=== PATIENT | female | born 1975 | race Caucasian/White ===

== ENCOUNTER 2018-06-22 19:41 | Emergency (ER) | payer BC ==
[2018-06-22 19:57] VITALS: BP 145/90
[2018-06-22] MEDS ORDERED: Lidocaine 1%* 5 ML VIAL INJ ONE (20:03)
[2018-06-22] MEDS ORDERED: Lidocaine 1%* 5 ML VIAL ONE (20:05)
--- NOTE | 2018-06-22 20:50 | UC ---
Laceration HPI - HPI Summary HPI Summary: Pt c/o laceration to left palm today ~ 1 hour ago. pt was using knife to separate frozen hamburger patties. Pt states she is UTD with tetanus. - History Of Current Complaint Chief Complaint: UCLaceration Stated Complaint: LACERATION ON LEFT HAND Time Seen by Provider: 06/22/18 19:58 Hx Obtained From: Patient Hx Last Menstrual Period: doesn't get anymore Laceration Location: Hand Mechanism Of Injury: Sharp Trauma Onset/Duration: Sudden Onset, Still Present Severity: Moderate Pain Intensity: 6 Aggravating Factors: Movement Related History: Dominant Hand Right - Allergies/Home Medications Allergies/Adverse Reactions: Allergies Allergy/AdvReac Type Severity Reaction Status Date / Time No Known Allergies Allergy Verified 06/22/18 19:57 PMH/Surg Hx/FS Hx/Imm Hx Previously Healthy: Yes - Surgical History Surgical History: Yes Surgery Procedure, Year, and Place: left hand surgery, uterine balloon therapy, gallbladder removed, hernia repair age 4, sinus surgery - Family History Known Family History: Negative: Blood Disorder - Social History Occupation: Employed Full-time Lives: With Family Alcohol Use: None Substance Use Type: None Smoking Status (MU): Never Smoked Tobacco Have You Smoked in the Last Year: No - Immunization History Most Recent Tetanus Shot: 5 yrs Review of Systems Constitutional: Negative Skin: Other - laceration Eyes: Negative ENT: Negative Respiratory: Negative Cardiovascular: Negative Gastrointestinal: Negative Genitourinary: Negative Motor: Negative Neurovascular: Negative Musculoskeletal: Negative, Myalgia - at laceration site Neurological: Negative Psychological: Negative Is Patient Immunocompromised?: No All Other Systems Reviewed And Are Negative: Yes Physical Exam Triage Information Reviewed: Yes Appearance: Well-Appearing, Pain Distress Vital Signs: Initial Vital Signs Temp 97.7 F 06/22/18 19:53 Pulse 79 06/22/18 19:53 Resp 18 06/22/18 19:53 BP 145/90 06/22/18 19:53 Pulse Ox 100 06/22/18 19:53 Vital Signs Reviewed: Yes Eye Exam: Normal ENT: Positive: Hearing grossly normal Dental Exam: Normal Neck exam: Normal Respiratory: Positive: No respiratory distress Musculoskeletal Exam: Normal Musculoskeletal: Positive: Strength Intact, ROM Intact Neurological Exam: Normal Psychological Exam: Normal Skin Exam: Other - laceration to palm of left hand at base of thumb, Laceration Repair - Laceration Repair 1 Description: Linear Laceration Size After Repair: Length (cm) - 2.5, Width (mm) - 4, Depth (mm) - 4 Modified For Repair: No Type Injection: Local Anesthesia Used: 1.0% Lido - 5 ml injected Irrigation With Pressure Irrigation Device: Yes Closure Material: Sutures - 7 sutures placed with 4-0 Closure Method: Single Layer Suture Of: Skin Suture Type: Prolene Laceration Course/Dx - Differential Dx - Laceration/Wound Differental Diagnoses: Laceration Provider Diagnoses: laceration repair to left palm of hand Discharge - Sign-Out/Discharge Documenting (check all that apply): Patient Departure All imaging exams completed and their final reports reviewed: No Studies - Discharge Plan Condition: Stable Disposition: HOME Prescriptions: Cephalexin CAP* [Keflex 500 CAP*] 500 mg PO Q12H #6 cap Patient Education Materials: Care For Your Stitches (ED), Laceration (ED) Referrals: Abbie Ramos MD [Primary Care Provider] - Additional Instructions: Please return to clinic or to your PCP for suture removal in 7-10 days. - Billing Disposition and Condition Condition: STABLE Disposition: Home
== END 2018-06-22 20:57 | disposition home or self-care (01) ==
LOC: UCCORT 19:41
DX: S61.412A Laceration without foreign body of left hand, initial encounter (principal); W26.0XXA Contact with knife, initial encounter; Y93.89 Activity, other specified; Y92.9 Unspecified place or not applicable
CPT/HCPCS: 12001; 99212; G0463